=== PATIENT | female | born 1965 | race Caucasian/White ===

== ENCOUNTER 2023-04-13 07:51 | Inpatient (IN) | payer OTHER ==
[~2023-04-13] VITALS: Ht 152.4 cm; Wt 81.6 kg
[~2023-04-13 07:51] MED LIST: ACTIGALL300 MG; CALCITRIOL0.25 MCG; COZAAR50 MG PO; FARXIGA10 MG PO; LANTUS; PRAVASTATIN SOD20 MG PO; SYNTHROID125 MCG PO; SYNTHROID88 MCG; ZYRTEC10 M3 PO
[2023-04-14] MEDS ORDERED: LANTUS SOL100 UNIT/1 (07:50)
[2023-04-14] MEDS ORDERED: PRAVASTATIN SOD40 MG (07:50)
== END 2023-04-17 09:07 | disposition home or self-care (01) | DRG 741 ==
LOC: O/R 04-14 06:12 → SURH 04-14 07:00 → OB/GYN 04-14 10:44 → SURH 04-14 10:48 → OB/GYN 04-17 09:07
PROVIDERS: ADMIT Specialist; ATTEND Specialist
PROC: 0UT70ZZ Resection of Bilateral Fallopian Tubes, Open Approach (ICD-10-PCS; 2023-04-14)
PROC: 0UT20ZZ Resection of Bilateral Ovaries, Open Approach (ICD-10-PCS; 2023-04-14)
PROC: 0UT90ZZ Resection of Uterus, Open Approach (ICD-10-PCS; principal; 2023-04-14 07:00)
DX: C54.1 Malignant neoplasm of endometrium (principal); D27.0 Benign neoplasm of right ovary; N80.03 Adenomyosis of the uterus; D25.1 Intramural leiomyoma of uterus